=== PATIENT | female | born 1995 | race Caucasian/White ===

== ENCOUNTER 2019-01-14 12:53 | Emergency (ER) | payer BC, OTHER ==
--- NOTE | 2019-01-14 14:03 | ER ---
Nurse's Notes [facility] Name: Angle Hurley Age: 24 yrs Sex: Female : 1995 Arrival Date: 01/14/2019 Time: 12:58 Bed 23 Private MD: Diagnosis: Streptococcal pharyngitis Presentation: 01/14 13:05 Presenting complaint: Patient states: sore throat, dyspnea started 0300 today. sv Transition of care: patient was not received from another setting of care. Onset of symptoms was January 14, 2019. Risk Assessment: Do you want to hurt yourself or someone else? Patient reports no desire to harm self or others. Care prior to arrival: None. 13:05 Method Of Arrival: Ambulatory sv 13:05 Acuity: VAIBHAV 4 sv 14:39 Initial Sepsis Screen: Does the patient meet any 2 criteria? No. Patient's initial tr5 sepsis screen is negative. Does the patient have a suspected source of infection? No. Patient's initial sepsis screen is negative. Historical: - Allergies: 13:07 hydrocodone; sv - PSHx: 13:07 ; sv - Immunization history:: Adult Immunizations up to date. - Social history:: Smoking status: unknown. - Ebola Screening: : No symptoms or risks identified at this time. Screenin:13 Abuse screen: Denies threats or abuse. Nutritional screening: No deficits noted. tr5 Tuberculosis screening: No symptoms or risk factors identified. Fall Risk None identified. Assessment: 14:13 General: Appears in no apparent distress. Behavior is calm, cooperative. Pain: tr5 Complains of pain in Throat Pain does not radiate. Neuro: Level of Consciousness is awake, alert, obeys commands, Oriented to person, place, time. Cardiovascular: Heart tones present Capillary refill < 3 seconds. Respiratory: Airway is patent Respiratory effort is even, labored, Respiratory pattern is regular, symmetrical, Breath sounds are clear. GI: No signs and/or symptoms were reported involving the gastrointestinal system. : No signs and/or symptoms were reported regarding the genitourinary system. EENT: Throat is reddened has patchy exudate has enlarged tonsils bilaterally with gag reflex present. Derm: No signs and/or symptoms reported regarding the dermatologic system. Musculoskeletal: No signs and/or symptoms reported regarding the musculoskeletal system. Vital Signs: 13:07 BP 123 / 72; Pulse 113; Resp 20; Temp 98.6(O); Pulse Ox 100% ; Weight 86.18 kg; Height sv 5 ft. 2 in. (157.48 cm); 13:58 Temp 98.9(O); jp3 13:07 Body Mass Index 34.75 (86.18 kg, 157.48 cm) sv ED Course: 12:58 Patient arrived in ED. am2 13:00 Flu and/or RSV swab sent to lab. Strep swab sent to lab. jp3 13:07 Triage completed. sv 13:08 Arm band placed on. sv 13:56 Gabo Thapa NP is PHCP. pm1 13:56 Jaquan Madrigal MD is Attending Physician. pm1 13:59 Patient maintains SpO2 saturation greater than 95% on room air. jp3 14:13 Bed in low position. Call light in reach. Side rails up X 1. tr5 14:38 No provider procedures requiring assistance completed. Patient did not have IV access tr5 during this emergency room visit. Administered Medications: No medications were administered Outcome: 14:02 Discharge ordered by MD. pm1 14:38 Discharged to home ambulatory. tr5 14:38 Condition: stable 14:38 Discharge instructions given to patient, Instructed on discharge instructions, follow up and referral plans. medication usage, Demonstrated understanding of instructions, follow-up care, medications, Prescriptions given X 1. 14:39 Patient left the ED. Signatures: Parisa Balbuena RN RN Betty Roberts RN RN Gabo Thapa NP ROUTE MANAGER pm1 Shawanda Kline Jacob 3 Neil Lemos RN RN tr5 Corrections: (The following items were deleted from the chart) 13:05 13:05 Presenting complaint: sv sv
--- NOTE | 2019-01-14 14:04 | EDPHYS ---
Physician Documentation [facility] Name: Angle Hurley Age: 24 yrs Sex: Female : 1995 Arrival Date: 01/14/2019 Time: 12:58 Bed 23 Private MD: SONU Physician Jaquan Madrigal HPI: 01/14 14:00 This 24 yrs old Female presents to ER via Ambulatory with complaints of Sore pm1 Throat, Difficulty Swallowing. 14:00 The patient presents with sore throat. The patient describes throat pain as constant. pm1 Onset: The symptoms/episode began/occurred this morning, at 03:00. Severity of symptoms: in the emergency department the symptoms are actually worse. Modifying factors: The symptoms are alleviated by nothing, the symptoms are aggravated by fluids, foods, swallowing, Patient's oral intake status: good unaware of sick contact. Associated signs and symptoms: Pertinent negatives earache, fever, flu-like symptoms, nausea, rhinorrhea, shortness of breath, vomiting. It is unknown whether or not the patient has recently seen a physician. Historical: - Allergies: 13:07 hydrocodone; sv - PSHx: 13:07 ; sv - Immunization history:: Adult Immunizations up to date. - Social history:: Smoking status: unknown. - Ebola Screening: : No symptoms or risks identified at this time. ROS: 14:00 Constitutional: Negative for fever, chills, and weight loss, Eyes: Negative for injury, pm1 pain, redness, and discharge, Neck: Negative for injury, pain, and swelling. 14:00 Cardiovascular: Negative for chest pain, palpitations, and edema, Respiratory: Negative for shortness of breath, cough, wheezing, and pleuritic chest pain, Abdomen/GI: Negative for abdominal pain, nausea, vomiting, diarrhea, and constipation, Back: Negative for injury and pain, MS/Extremity: Negative for injury and deformity, Skin: Negative for injury, rash, and discoloration, Neuro: Negative for headache, weakness, numbness, tingling, and seizure. 14:00 ENT: Positive for sore throat, Negative for ear pain. Exam: 14:00 Constitutional: This is a well developed, well nourished patient who is awake, alert, pm1 and in no acute distress. Head/Face: Normocephalic, atraumatic. Eyes: Pupils equal round and reactive to light, extra-ocular motions intact. Lids and lashes normal. Conjunctiva and sclera are non-icteric and not injected. Cornea within normal limits. Periorbital areas with no swelling, redness, or edema. 14:00 Neck: Trachea midline, no thyromegaly or masses palpated, and no cervical lymphadenopathy. Supple, full range of motion without nuchal rigidity, or vertebral point tenderness. No Meningismus. Chest/axilla: Normal chest wall appearance and motion. Nontender with no deformity. No lesions are appreciated. Cardiovascular: Regular rate and rhythm with a normal S1 and S2. No gallops, murmurs, or rubs. Normal PMI, no JVD. No pulse deficits. Respiratory: Lungs have equal breath sounds bilaterally, clear to auscultation and percussion. No rales, rhonchi or wheezes noted. No increased work of breathing, no retractions or nasal flaring. Abdomen/GI: Soft, non-tender, with normal bowel sounds. No distension or tympany. No guarding or rebound. No evidence of tenderness throughout. Back: No spinal tenderness. No costovertebral tenderness. Full range of motion. Skin: Warm, dry with normal turgor. Normal color with no rashes, no lesions, and no evidence of cellulitis. MS/ Extremity: Pulses equal, no cyanosis. Neurovascular intact. Full, normal range of motion. 14:00 ENT: External ear(s): are unremarkable, Ear canal(s): are normal, TM's: are normal, Nose: is normal, Mouth: is normal, no acute changes, Posterior pharynx: Tonsils: bilaterally enlarged, with erythema, no exudate, no ulcerations, peritonsillar mass, is not appreciated, pooling of secretions, is not appreciated. 14:00 Neuro: Orientation: is normal, Motor: is normal, moves all fours. Vital Signs: 13:07 BP 123 / 72; Pulse 113; Resp 20; Temp 98.6(O); Pulse Ox 100% ; Weight 86.18 kg; Height sv 5 ft. 2 in. (157.48 cm); 13:58 Temp 98.9(O); jp3 13:07 Body Mass Index 34.75 (86.18 kg, 157.48 cm) sv MDM: 13:56 Patient medically screened. pm1 14:02 Data reviewed: vital signs. Data interpreted: Pulse oximetry: on room air is 100 %. pm1 Interpretation: normal. Counseling: I had a detailed discussion with the patient and/or guardian regarding: the historical points, exam findings, and any diagnostic results supporting the discharge/admit diagnosis, lab results, the need for outpatient follow up, to return to the emergency department if symptoms worsen or persist or if there are any questions or concerns that arise at home. 01/14 13:08 Order name: Strep; Complete Time: 13:56 sv 01/14 13:08 Order name: Flu; Complete Time: 13:56 sv Administered Medications: No medications were administered Disposition: 01/15 09:07 Co-signature as Attending Physician, Jaquan Madrigal MD I agree with the assessment and eduardo plan of care. Disposition: 01/14/19 14:02 Discharged to Home. Impression: Streptococcal pharyngitis. - Condition is Stable. - Discharge Instructions: Strep Throat. - Prescriptions for Amoxicillin 500 mg Oral Capsule - take 1 capsule by ORAL route every 8 hours for 10 days; 30 tablet. - Work release form, Medication Reconciliation Form, Thank You Letter, Antibiotic Education, Prescription Opioid Use form. - Follow up: Emergency Department; When: As needed; Reason: Worsening of condition. Follow up: Private Physician; When: 2 - 3 days; Reason: Recheck today's complaints, Continuance of care, Re-evaluation by your physician. - Problem is new. - Symptoms have improved. Signatures: Dispatcher [employer] Parisa Graham RN RN sv Anderson, Corey, MD MD cha Smirch, Shelby, RN RN Gabo Thapa, [employer] WORKFORCE PLANNER pm1 Neil Lemos RN RN tr5 Corrections: (The following items were deleted from the chart) 01/14 14:39 14:02 01/14/2019 14:02 Discharged to Home. Impression: Streptococcal pharyngitis. ss Condition is Stable. Forms are Medication Reconciliation Form, Thank You Letter, Antibiotic Education, Prescription Opioid Use. Follow up: Emergency Department; When: As needed; Reason: Worsening of condition. Follow up: Private Physician; When: 2 - 3 days; Reason: Recheck today's complaints, Continuance of care, Re-evaluation by your physician. Problem is new. Symptoms have improved. pm1
[2019-01-14 14:46] VITALS: BP 123/72; O2SAT 100
[2019-01-14 14:47] VITALS: TEMP 98.9
== END 2019-01-14 14:39 | disposition home or self-care (01) ==
LOC: ER 12:53
DX: J02.0 Streptococcal pharyngitis (principal); Z88.5 Allergy status to narcotic agent
CPT/HCPCS: 87081; 87804; 99284

== ENCOUNTER 2021-04-15 16:13 | Emergency (ER) | payer BC, OTHER, SELFPAY ==
--- NOTE | 2021-04-15 17:37 | EDPHYS ---
Physician Documentation [facility] Name: Angle Hurley Age: 26 yrs Sex: Female : 1995 Arrival Date: 04/15/2021 Time: 16:16 Bed Waiting Private MD: ED Physician Khalif Sanchez HPI: 04/15 17:32 This 26 yrs old Female presents to ER via Ambulatory with complaints of Diarrhea, Fever.cp 17:32 The patient presents to the emergency department with diarrhea, that is intermittent. cp 17:32 The patient or guardian reports sinus pressure/congestion intermittent for past 1 cp month. drainage increase over past 1 week. slight cough. 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 - Social history:: Smoking status: Patient denies any tobacco usage or history of. ROS: 17:33 Eyes: Negative for injury, pain, redness, and discharge. cp 17:33 Constitutional: Negative for body aches, chills, fever, poor PO intake. 17:33 ENT: Positive for rhinorrhea, sinus congestion, Negative for drainage from ear(s), ear pain, sore throat. 17:33 Respiratory: Positive for slight cough, Negative for shortness of breath, wheezing. 17:33 Abdomen/GI: Positive for diarrhea, Negative for abdominal pain, vomiting. 17:33 Neuro: Negative for altered mental status, weakness. 17:33 All other systems are negative. Exam: 17:33 Constitutional: The patient appears in no acute distress, alert, awake, non-toxic, well cp developed, well nourished. 17:33 Head/face: Sinus tenderness, that is mild, is located over the right frontal sinus, left frontal sinus, right maxillary sinus and left maxillary sinus. 17:33 Eyes: Periorbital structures: appear normal, Conjunctiva: normal, no exudate, no injection, Lids and lashes: appear normal, bilaterally. 17:33 ENT: External ear(s): are unremarkable, Ear canal(s): are normal, clear, TM's: dullness, bilaterally, Nose: is normal, Mouth: Lips: moist, Oral mucosa: pink and intact, moist, Posterior pharynx: Airway: no evidence of obstruction, patent. 17:33 Chest/axilla: Inspection: normal. 17:33 Cardiovascular: Rate: normal, Rhythm: regular. 17:33 Respiratory: the patient does not display signs of respiratory distress, Respirations: normal, no use of accessory muscles, no retractions, labored breathing, is not present, Breath sounds: are clear throughout, no decreased breath sounds, no stridor, no wheezing. 17:33 Abdomen/GI: Exam negative for discomfort, distension, guarding, Inspection: abdomen appears normal. Vital Signs: 17:20 BP 125 / 77; Pulse 85; Resp 16; Temp 98.3(O); Pulse Ox 100% ; Weight 86.18 kg; Height 5 vg1 ft. 2 in. (157.48 cm); Pain 0/10; 17:20 Body Mass Index 34.75 (86.18 kg, 157.48 cm) vg1 MDM: 17:36 Data reviewed: vital signs, nurses notes, and as a result, I will discharge patient. cp 17:36 Patient medically screened. cp 17:36 Counseling: I had a detailed discussion with the patient and/or guardian regarding: the cp historical points, exam findings, and any diagnostic results supporting the discharge/admit diagnosis, lab results, to return to the emergency department if symptoms worsen or persist or if there are any questions or concerns that arise at home. 04/15 17:31 Order name: COVID-19 (Coronavirus) Document "Date of Onset" if Symptomatic 1 04/15 17:31 Order name: Flu vg1 04/15 17:31 Order name: CORONAVIRUS EDMS 04/15 17:31 Order name: Influenza Screen (A EDMS Administered Medications: No medications were administered Disposition: 17:45 Chart complete. cp 18:03 Co-signature as Attending Physician, Khalif Sanchez MD I agree with the assessment and kdr plan of care. Disposition Summary: 04/15/21 17:36 Discharge Ordered Location: Home cp Problem: new cp Symptoms: are unchanged cp Condition: Stable cp Diagnosis - Acute sinusitis, unspecified cp - Diarrhea, unspecified cp Followup: cp - With: Private Physician - When: 2 - 3 days - Reason: Worsening of condition Discharge Instructions: - Discharge Summary Sheet cp - Food Choices to Help Relieve Diarrhea, Adult cp - Sinusitis, Adult cp - Diarrhea, Adult cp Forms: - Medication Reconciliation Form cp - Thank You Letter cp - Antibiotic Education cp - Prescription Opioid Use cp Prescriptions: - Flonase Allergy Relief 50 mcg/actuation Nasal spray,suspension - spray 1 spray by INTRANASAL route once daily; 1 Device; Refills: 0, Product cp Selection Permitted - Amoxicillin 875 mg Oral Tablet - take 1 tablet by ORAL route every 12 hours for 10 days; 20 tablet; Refills: 0, cp Product Selection Permitted Signatures: Dispatcher [employer] EDKhalif Cardoza MD MD kdr Page, Corey, PA PA cp Garcia, Victoria RN RN vg1
--- NOTE | 2021-04-15 17:37 | ER ---
Nurse's Notes [facility] Name: Angle Hurley Age: 26 yrs Sex: Female : 1995 Arrival Date: 04/15/2021 Time: 16:16 Bed Waiting Private MD: Diagnosis: Acute sinusitis, unspecified;Diarrhea, unspecified Presentation: 04/15 17:20 Chief complaint: Patient states: Diarrhea that comes and goes for about 2 weeks, 'but vg1 consistent for the past 4 days' states 'slight cough' and nasal discharge that comes and goes as well and states 'feels like head is congested and feels the drainage in the back of my throat.'. Coronavirus screen: Vaccine status: Patient reports being unvaccinated. Client denies travel out of the [place] in the last 14 days. Ebola Screen: Patient negative for fever greater than or equal to 101.5 degrees Fahrenheit, and additional compatible Ebola Virus Disease symptoms. Initial Sepsis Screen: Does the patient meet any 2 criteria? No. Patient's initial sepsis screen is negative. Does the patient have a suspected source of infection? No. Patient's initial sepsis screen is negative. Risk Assessment: Do you want to hurt yourself or someone else? Patient reports no desire to harm self or others. Onset of symptoms was April 01, 2021. 17:20 Method Of Arrival: Ambulatory vg1 17:20 Acuity: VAIBHAV 4 vg1 Triage Assessment: 17:22 General: Appears in no apparent distress. comfortable, Behavior is calm, cooperative. vg1 Pain: Denies pain. GI: Reports diarrhea, Patient currently denies nausea, vomiting. 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 - Social history:: Smoking status: Patient denies any tobacco usage or history of. Vital Signs: 17:20 BP 125 / 77; Pulse 85; Resp 16; Temp 98.3(O); Pulse Ox 100% ; Weight 86.18 kg; Height 5 vg1 ft. 2 in. (157.48 cm); Pain 0/10; 17:20 Body Mass Index 34.75 (86.18 kg, 157.48 cm) vg1 ED Course: 16:16 Patient arrived in ED. as 17:22 Triage completed. vg1 17:22 Arm band placed on. vg1 17:31 Jaquan Manuel PA is PHCP. cp 17:31 Khalif Sanchez MD is Attending Physician. cp 17:36 COVID swab sent to lab. Flu and/or RSV swab sent to lab. vg1 Administered Medications: No medications were administered Outcome: 17:36 Discharge ordered by . cp 17:46 Patient left the ED. vg1 Signatures: Sherrell Box as Jaquan Manuel PA PA cp Chuyita Owens, RN RN vg1 Corrections: (The following items were deleted from the chart) 17:26 17:20 Chief complaint: Patient states: Diarrhea that comes and goes for about 2 weeks, vg1 that's 'slight cough' and nasal discharge that comes and goes as well and states 'feels like head is congested and feels the drainage in the back of my throat.' vg1
[2021-04-15 17:55] VITALS: BP 125/77; TEMP 98.3; O2SAT 100
== END 2021-04-15 17:46 | disposition home or self-care (01) ==
LOC: ER 16:13
DX: J01.90 Acute sinusitis, unspecified (principal); R19.7 Diarrhea, unspecified
CPT/HCPCS: 87804 ×2; 99282; U0002

== ENCOUNTER 2021-09-15 21:40 | Emergency (ER) | payer BC ==
[2021-09-16 00:50] LABS: Absolute Lymphocytes (CBC) 0.8 K/uL (0.7-4.9); Hematocrit 28.4 % (36.0-45.0); Lymphocytes % 6.2 % (15.3-44.8); MPV 7.2 fL (7.6-11.3); RBC Red Blood Cell Count 3.94 M/uL (3.86-4.86)
[2021-09-16] MEDS ORDERED: MORPHINE 4 MG/ML SYR ONE (01:01)
[2021-09-16] MEDS ORDERED: ONDANSETRON 4 MG/2 ML VIAL ONE (01:01)
[2021-09-16] MEDS ORDERED: NA CHLORIDE 0.9% 1,000 ML ONE (01:01)
[2021-09-16 01:02] LABS: Albumin 3.6 g/dL (3.4-5.0); Bilirubin Total 0.2 mg/dL (0.2-1.0); Potassium 3.7 mmol/L (3.5-5.1); Protein, Total 7.5 g/dL (6.4-8.2)
[2021-09-16 01:28] LABS: Urine Blood Trace-lysed (Negative); Urine Glucose Negative (Negative); Urine Protein 1+ (Negative); Urine Specific Gravity >=1.030 (1.005-1.030); Urine pH 5.5 (5.0-7.0)
[2021-09-16 01:30] LABS: Blood Morphology Comment NOT SEEN (NOT SEEN); Platelet Estimate ADEQ
--- NOTE | 2021-09-16 05:09 | EDPHYS ---
Physician Documentation [facility] Name: Angle Hurley Age: 26 yrs Sex: Female : 1995 Arrival Date: 09/15/2021 Time: 21:47 Bed 30 Private MD: ED Physician Mich Maier HPI: 09/16 00:40 This 26 yrs old Female presents to ER via Ambulatory with complaints of mh7 Vomiting/Diarrhea, Abdominal Cramping, Decreased Appetite. 00:40 The patient presents to the emergency department with nausea, that is moderate, mh7 vomiting, that is intermittent, described as clear fluid, diarrhea, that is intermittent, abdominal pain, of the left lower quadrant, described as intermittent, vague,\E\ waxing and waning, and does not radiate. Onset: The symptoms/episode began/occurred 3 day(s) ago. Possible causes: unknown. The symptoms are aggravated by nothing. The symptoms are alleviated by nothing. Associated signs and symptoms: Pertinent negatives: anorexia, belching, constipation, dysuria, fever, flatulence, GI bleeding, hematuria, vaginal discharge. Severity of symptoms: At their worst the symptoms were moderate in the emergency department the symptoms have improved moderately. 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 - Social history:: Smoking status: Patient denies any tobacco usage or history of. ROS: 09/16 00:40 Constitutional: Negative for fever, chills, and weight loss, Eyes: Negative for injury, mh7 pain, redness, and discharge, ENT: Negative for injury, pain, and discharge, Neck: Negative for injury, pain, and swelling, Cardiovascular: Negative for chest pain, palpitations, and edema, Respiratory: Negative for shortness of breath, cough, wheezing, and pleuritic chest pain, Back: Negative for injury and pain, : Negative for injury, bleeding, discharge, and swelling, MS/Extremity: Negative for injury and deformity, Skin: Negative for injury, rash, and discoloration, Neuro: Negative for headache, weakness, numbness, tingling, and seizure, Psych: Negative for depression, anxiety, suicide ideation, homicidal ideation, and hallucinations, Allergy/Immunology: Negative for hives, rash, and allergies, Endocrine: Negative for neck swelling, polydipsia, polyuria, polyphagia, and marked weight changes, Hematologic/Lymphatic: Negative for swollen nodes, abnormal bleeding, and unusual bruising. Exam: 00:40 Head/Face: Normocephalic, atraumatic. Eyes: Pupils equal round and reactive to light, mh7 extra-ocular motions intact. Lids and lashes normal. Conjunctiva and sclera are non-icteric and not injected. Cornea within normal limits. Periorbital areas with no swelling, redness, or edema. Neck: Trachea midline, no thyromegaly or masses palpated, and no cervical lymphadenopathy. Supple, full range of motion without nuchal rigidity, or vertebral point tenderness. No Meningismus. Chest/axilla: Normal chest wall appearance and motion. Nontender with no deformity. No lesions are appreciated. Cardiovascular: Regular rate and rhythm with a normal S1 and S2. No gallops, murmurs, or rubs. Normal PMI, no JVD. No pulse deficits. Respiratory: Lungs have equal breath sounds bilaterally, clear to auscultation and percussion. No rales, rhonchi or wheezes noted. No increased work of breathing, no retractions or nasal flaring. 00:40 Back: No spinal tenderness. No costovertebral tenderness. Full range of motion. Skin: Warm, dry with normal turgor. Normal color with no rashes, no lesions, and no evidence of cellulitis. MS/ Extremity: Pulses equal, no cyanosis. Neurovascular intact. Full, normal range of motion. Neuro: Awake and alert, GCS 15, oriented to person, place, time, and situation. Cranial nerves II-XII grossly intact. Motor strength 5/5 in all extremities. Sensory grossly intact. Cerebellar exam normal. Normal gait. Psych: Awake, alert, with orientation to person, place and time. Behavior, mood, and affect are within normal limits. 00:40 Constitutional: The patient appears in no acute distress, alert, awake, uncomfortable. 00:40 Abdomen/GI: Inspection: obese Bowel sounds: normal, in all quadrants, Palpation: moderate abdominal tenderness, in the left lower quadrant, mass, is not appreciated, rebound tenderness, is not appreciated, voluntary guarding, is not appreciated, involuntary guarding, is not appreciated, no appreciated organomegaly, Rectal exam: the exam is deferred, because of patient request, Indicators: McBurney's point is not tender, Abbott's sign is negative, Rovsing's sign is negative, Obturator sign is negative, Psoas sign is negative, Liver: no appreciated palpable abnormalities, Hernia: not appreciated. Vital Signs: 09/15 23:34 BP 138 / 90; Pulse 75; Resp 17; Temp 98.7(TE); Pulse Ox 100% on R/A; Weight 83.91 kg ll3 (R); Height 5 ft. 2 in. (157.48 cm) (R); 09/16 01:46 BP 114 / 75; Pulse 92; Resp 18; Pulse Ox 100% on R/A; ll3 02:57 BP 115 / 75; Pulse 67; Resp 15; Pulse Ox 100% on R/A; ll3 04:30 BP 123 / 76; Pulse 79; Resp 15; Pulse Ox 100% on R/A; ll3 09/15 23:34 Body Mass Index 33.84 (83.91 kg, 157.48 cm) ll3 MDM: 05:07 Differential diagnosis: Nonspecific abd pain, gastritis, diverticulitis, viral mh7 gastroenteritis, gastroenteritis. Data reviewed: vital signs, nurses notes, lab test result(s), CBC, electrolytes, urinalysis, radiologic studies, CT scan, ultrasound. Data interpreted: Pulse oximetry: on room air is 100 %. Interpretation: normal. Counseling: I had a detailed discussion with the patient and/or guardian regarding: the historical points, exam findings, and any diagnostic results supporting the discharge/admit diagnosis, lab results, radiology results, the need for outpatient follow up, an OB/Gyne specialist, to return to the emergency department if symptoms worsen or persist or if there are any questions or concerns that arise at home. Response to treatment: the patient's symptoms have markedly improved after treatment. 05:09 Patient medically screened. [facility] 09/15 23:52 Order name: CBC with Diff; Complete Time: 02:20 lp1 09/15 23:52 Order name: CMP; Complete Time: 02:20 lp1 09/15 23:52 Order name: Lipase; Complete Time: 02:20 lp1 09/16 00:54 Order name: Manual Differential; Complete Time: 02:20 EDMS 09/16 01:28 Order name: Urine Dipstick-Ancillary; Complete Time: 02:20 EDMS 09/15 23:52 Order name: IV Saline Lock; Complete Time: 00:41 lp1 09/15 23:52 Order name: Labs collected and sent; Complete Time: 00:41 lp1 09/16 00:45 Order name: Urine Dipstick-Ancillary (obtain specimen); Complete Time: 01:36 [facility] 09/16 00:46 Order name: CT Abd/Pelvis - Without Contrast [facility] 09/16 03:28 Order name: US Transvaginal Study (Probe) [facility] 09/16 00:45 Order name: Urine Test (obtain specimen); Complete Time: 01:36 [facility] Administered Medications: 01:20 Drug: Zofran (Ondansetron) 4 mg Route: IVP; Site: right antecubital; ll3 01:48 Follow up: Response: No adverse reaction ll3 01:23 Drug: NS 0.9% 1000 ml Route: IV; Rate: 1000 ml; Site: right antecubital; ll3 02:26 Follow up: Response: No adverse reaction; IV Status: Completed infusion; IV Intake: ll3 1000ml 01:23 Drug: morphine 4 mg Route: IVP; Infused Over: 4 mins; Site: right antecubital; ll3 01:48 Follow up: Response: No adverse reaction ll3 Disposition Summary: 09/16/21 05:09 Discharge Ordered Location: Home [facility] Problem: new [facility] Symptoms: have improved [facility] Condition: Stable [facility] Diagnosis - Lower abdominal pain, unspecified 7 - Gastroenteritis 7 - Other ovarian cyst, left side [facility] Followup: [facility] - With: Private Physician - When: 1 - 2 days - Reason: Worsening of condition, Recheck today's complaints, Continuance of care, Re-evaluation by your physician Followup: [facility] - With: Ese Goldman MD - When: 1 - 2 days - Reason: Recheck today's complaints, Continuance of care, Re-evaluation by your physician Discharge Instructions: - Discharge Summary Sheet 7 - Viral Gastroenteritis, Adult, [id number] 7 - Abdominal Pain, Adult, [id number]-[id number] 7 - Ovarian Cyst, Mjef-qv-Ncho [facility] Forms: - Medication Reconciliation Form [facility] - Thank You Letter [facility] - Antibiotic Education [facility] - Prescription Opioid Use [facility] Prescriptions: - ketorolac 10 mg Oral tablet - take 1 tablet by ORAL route every 6-8 hours As needed not to exceed 40 mg in [facility] 24hrs; 15 tablet; Refills: 0, Product Selection Permitted - ondansetron 4 mg Oral tablet,disintegrating - place 1 tablet by TRANSLINGUAL route every 8 hours As needed; 10 tablet; [facility] Refills: 0, Product Selection Permitted - dicyclomine 20 mg Oral Tablet - take 1 tablet by ORAL route 4 times per day As needed; 20 tablet; Refills: 0, [facility] Product Selection Permitted Signatures: Dispatcher [employer] EDTish Larsen RN RN lp1 Mich Maier MD MD 7 Reed Hernandez RN RN ll3
--- NOTE | 2021-09-16 05:09 | ER ---
Nurse's Notes [facility] Name: Angle Hurley Age: 26 yrs Sex: Female : 1995 Arrival Date: 09/15/2021 Time: 21:47 Bed 30 Private MD: Diagnosis: Lower abdominal pain, unspecified;Gastroenteritis;Other ovarian cyst, left side Presentation: 09/15 23:34 Chief complaint: Patient states: C/O diarrhea for 3 days, states started vomiting ll3 tonight and c/o left sided cramping. Coronavirus screen: Vaccine status: Patient reports being unvaccinated. diarrhea, nausea, vomiting. Ebola Screen: No symptoms or risks identified at this time. Initial Sepsis Screen: Does the patient meet any 2 criteria? No. Patient's initial sepsis screen is negative. Does the patient have a suspected source of infection? No. Patient's initial sepsis screen is negative. Risk Assessment: Do you want to hurt yourself or someone else? Patient reports no desire to harm self or others. Onset of symptoms was September 12, 2021. Activity prior to arrival: vomiting. 23:34 Method Of Arrival: Ambulatory ll3 23:34 Acuity: VAIBHAV 3 ll3 Triage Assessment: 23:37 General: Appears uncomfortable, ill, Behavior is calm, cooperative. Pain: Complains of ll3 pain in anterior aspect of right lateral abdomen Pain currently is 7 out of 10 on a pain scale. Pain began 4 hours ago. Is continuous. Neuro: No deficits noted. Respiratory: No deficits noted. GI: Reports cramping, diarrhea, nausea, vomiting. Derm: Skin is pink, warm \T\ dry. 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 - Social history:: Smoking status: Patient denies any tobacco usage or history of. Screenin:39 Abuse screen: Denies threats or abuse. Nutritional screening: No deficits noted. ll3 Tuberculosis screening: No symptoms or risk factors identified. 09/16 02:58 Fall Risk No fall in past 12 months (0 pts). No secondary diagnosis (0 pts). IV access ll3 (20 points). Ambulatory Aid- None/Bed Rest/Nurse Assist (0 pts). Gait- Normal/Bed Rest/Wheelchair (0 pts) Mental Status- Oriented to own ability (0 pts). Total Flores Fall Scale indicates No Risk (0-24 pts). Assessment: 09/15 23:39 General: See triage assessment. GI: Abdomen is round non-distended, Stools are reported ll3 to be diarrhea. Reports cramping, diarrhea, nausea, vomiting. 09/16 00:45 Reassessment: No changes from previously documented assessment. Patient and/or family ll3 updated on plan of care and expected duration. Pain level reassessed. Patient is alert, oriented x 3, equal unlabored respirations, skin warm/dry/pink. 01:47 Reassessment: No changes from previously documented assessment. Patient and/or family ll3 updated on plan of care and expected duration. Pain level reassessed. Patient is alert, oriented x 3, equal unlabored respirations, skin warm/dry/pink. 02:57 Reassessment: No changes from previously documented assessment. Patient and/or family ll3 updated on plan of care and expected duration. Pain level reassessed. Patient is alert, oriented x 3, equal unlabored respirations, skin warm/dry/pink. 04:00 Reassessment: No changes from previously documented assessment. Patient and/or family ll3 updated on plan of care and expected duration. Pain level reassessed. Patient is alert, oriented x 3, equal unlabored respirations, skin warm/dry/pink. 04:30 Reassessment: No changes from previously documented assessment. Patient and/or family ll3 updated on plan of care and expected duration. Pain level reassessed. Patient is alert, oriented x 3, equal unlabored respirations, skin warm/dry/pink. Vital Signs: 09/15 23:34 BP 138 / 90; Pulse 75; Resp 17; Temp 98.7(TE); Pulse Ox 100% on R/A; Weight 83.91 kg ll3 (R); Height 5 ft. 2 in. (157.48 cm) (R); 09/16 01:46 BP 114 / 75; Pulse 92; Resp 18; Pulse Ox 100% on R/A; ll3 02:57 BP 115 / 75; Pulse 67; Resp 15; Pulse Ox 100% on R/A; ll3 04:30 BP 123 / 76; Pulse 79; Resp 15; Pulse Ox 100% on R/A; ll3 09/15 23:34 Body Mass Index 33.84 (83.91 kg, 157.48 cm) ll3 ED Course: 09/15 21:47 Patient arrived in ED. ja2 23:26 Reed Hernandez, RN is Primary Nurse. ll3 23:37 Triage completed. ll3 23:37 Arm band placed on Patient placed in an exam room, on pulse oximetry. ll3 23:39 Patient has correct armband on for positive identification. Placed in gown. Bed in low ll3 position. Call light in reach. Side rails up X 1. Adult w/ patient. 09/16 00:05 Mich Maier MD is Attending Physician. 7 00:30 No provider procedures requiring assistance completed. Inserted saline lock: 18 gauge ll3 in right antecubital area, using aseptic technique. Blood collected. 02:12 CT Abd/Pelvis - Without Contrast In Process Unspecified. EDMS 04:12 US Transvaginal Study (Probe) In Process Unspecified. EDMS 05:08 Ese Goldman MD is Referral Physician. 7 05:19 IV discontinued, intact, bleeding controlled, No redness/swelling at site. Pressure ll3 dressing applied. Administered Medications: 01:20 Drug: Zofran (Ondansetron) 4 mg Route: IVP; Site: right antecubital; ll3 01:48 Follow up: Response: No adverse reaction ll3 01:23 Drug: NS 0.9% 1000 ml Route: IV; Rate: 1000 ml; Site: right antecubital; ll3 02:26 Follow up: Response: No adverse reaction; IV Status: Completed infusion; IV Intake: ll3 1000ml 01:23 Drug: morphine 4 mg Route: IVP; Infused Over: 4 mins; Site: right antecubital; ll3 01:48 Follow up: Response: No adverse reaction ll3 Medication: 09/15 23:39 VIS not applicable for this client. ll3 Intake: 09/16 02:26 IV: 1000ml; Total: 1000ml. ll3 Outcome: 05:09 Discharge ordered by . 7 05:19 Discharged to home ambulatory, with family. ll3 05:19 Condition: stable 05:19 Discharge instructions given to patient, family, Instructed on discharge instructions, follow up and referral plans. medication usage, Demonstrated understanding of instructions, follow-up care, medications, Prescriptions given X 3. 05:19 Patient left the ED. ll3 Signatures: Dispatcher [employer] Mich Stacy MD MD mh7 Mis Thompson Lynsea, RN RN ll3
[2021-09-16 05:28] VITALS: TEMP 98.7; O2SAT 100
[2021-09-16 05:32] VITALS: BP 123/76
--- NOTE | 2021-09-16 18:50 | RAD REPORT ---
EXAM DESCRIPTION: US Pelvis Transvaginal and US Duplex Arterial/Venous of the Pelvis, Complete CLINICAL HISTORY: The patient is 26 years old and is Female; left ovarian mass LMP August 30, 2021. TECHNIQUE: Real-time transvaginal pelvic ultrasound with image documentation. Transvaginal imaging was used for better evaluation of the endometrium and adnexa. Real-time duplex ultrasound scan of the arterial and venous flow of the pelvis with color Doppler flow and spectral waveform analysis. COMPARISON: CT abdomen pelvis September 16, 2021. FINDINGS: Uterus/cervix: Uterus is 8.5 x 5.0 x 5.8 cm in size. Endometrium is 5.8 mm in thickness. Uterus is 4.5 x 4.1 x 3.7 cm in size. No myometrial mass. Right ovary: Right ovary 3.9 x 2.6 x 2.8 cm. No torsion. Left ovary: Left ovary 4.5 x 4.1 x 3.8 cm. Homogeneous hypoechoic left ovarian lesion with uniform internal echoes, 3.2 cm in greatest d imension. Left ovarian simple cyst, 3.0 cm. No torsion. Free fluid: No free fluid. Bladder: Empty bladder which cannot be evaluated with this probe. IMPRESSION: 1. No ovarian torsion. 2. 3.2 cm left ovarian lesion consistent with endometrioma/hemorrhagic cyst. Recommend pelvic US fo llow-up in 6-12 weeks; if unchanged, continue follow-up with US OR MRI with IV contrast - if follow-u p studies do not confirm endometrioma or dermoid, consider surgical evaluation. References: Radiology 2019 Feb;293(2):359-371, Radiology 2010 Dec;256(3):943-54 3. Left ovarian simple cyst 3.0 cm. Electronically signed by: Parisa Mccord MD 09/16/2021 4:31 AM CDT Due to temporary technical issues with the PACS/Fluency reporting system, reports are being signed by the in house radiologists without review as a courtesy to insure prompt reporting. The interpreting radiologist is fully responsible for the content of the report.
--- NOTE | 2021-09-16 18:51 | RAD REPORT ---
EXAM DESCRIPTION: CT Abdomen and Pelvis Without Intravenous Contrast CLINICAL HISTORY: The patient is 26 years old and is Female; LLQ abdominal pain TECHNIQUE: Axial computed tomography images of the abdomen and pelvis without intravenous contrast. Sagittal and coronal reformatted images were created and reviewed. This CT exam was performed usi ng one or more of the following dose reduction techniques: automated exposure control, adjustment o f the mA and/or kV according to patient size, and/or use of iterative reconstruction technique. COMPARISON: No relevant prior studies available. FINDINGS: LUNG BASES: Unremarkable. No mass. No consolidation. ABDOMEN: LIVER: Homogeneous without focal mass. GALLBLADDER AND BILE DUCTS: The gallbladder slightly contracted. PANCREAS: Unremarkable. No ductal dilation. SPLEEN: Unremarkable. ADRENALS: Unremarkable. No mass. KIDNEYS AND URETERS: No obstructing stones. No hydronephrosis. No perinephric fluid. STOMACH AND BOWEL: The stomach is distended with food contents and air. The small bowel is normal in caliber. Stool is present throughout colon. There is no mucosal thickening or evidence of bowel o bstruction. PELVIS: APPENDIX: The appendix is normal in caliber without surrounding inflammation. BLADDER: Unremarkable. No stones. REPRODUCTIVE: A heterogeneous dense 3.7 cm left ovarian mass is present. The uterus and right ova ry are normal. ABDOMEN and PELVIS: INTRAPERITONEAL SPACE: Unremarkable. No free air. No significant fluid collection. BONES/JOINTS: No acute fracture. SOFT TISSUES: The soft tissues are normal. VASCULATURE: Unremarkable. No abdominal aortic aneurysm. LYMPH NODES: Unremarkable. No enlarged lymph nodes. IMPRESSION: Heterogeneous left ovarian mass. Recommend prompt follow-up pelvic ultrasound. Electronically signed by: Martha Maldonado MD 09/16/2021 2:32 AM CDT Due to temporary technical issues with the PACS/Fluency reporting system, reports are being signed by the in house radiologists without review as a courtesy to insure prompt reporting. The interpreting radiologist is fully responsible for the content of the report.
== END 2021-09-16 05:19 | disposition home or self-care (01) ==
LOC: ER 21:40
DX: K52.9 Noninfective gastroenteritis and colitis, unspecified (principal); N83.292 Other ovarian cyst, left side; R10.30 Lower abdominal pain, unspecified; Z88.5 Allergy status to narcotic agent
CPT/HCPCS: 96361; 85025; 36415; 81003; 83690; 80053; 74176; 76830; 96375; 96374; 99284; J7030; J2405

== ENCOUNTER 2024-07-22 11:40 | Emergency (ER) | payer BC ==
--- OUTSIDE RECORDS SUMMARY | 2024-07-22 11:42 | XMS REPORT | Continuity of Care Document ---
Author Name Unknown Address [address] [place] [address] [place] [address] [address] [place] [address] Care Team Providers Care Trousseau Consultant Name Role Phone [email or web address] Attending Clinician Unavaila ble [email or web address] Admitting Clinician Unavaila ble Encounters Start Date/Time End Date/Time Encounter Type Admission Type Attending Clinicians Care Facility Care Department Encounter ID Source 2023-02-11 00:00:00 2023-02-11 00:00:00 Outpatient [email or web address] [facility] [id number] [facility]
[2024-07-22] MEDS ORDERED: FENTANYL CITR 100 MCG/2 ML ONE (12:12)
[2024-07-22] MEDS ORDERED: ONDANSETRON 4 MG/2 ML VIAL ONE (12:12)
[2024-07-22] MEDS ORDERED: NA CHLORIDE 0.9% 1,000 ML ONE (12:13)
[2024-07-22 12:30] LABS: Absolute Basophils 0.1 K/uL (0-0.5); Absolute Eosinophils 0.3 K/uL (0-0.5); Absolute Lymphocytes (CBC) 3.2 K/uL (0.7-4.9); Absolute Monocytes 0.5 K/uL (0.1-1.3); Absolute Neutrophil 7.5 K/uL (1.8-8.0); Basophils % 0.5 % (0-1.3); Eosinophils % 2.5 % (0-4.4); Hematocrit 31.8 % (36.0-45.0); Hemoglobin 11.1 g/dL (12.0-15.0); Lymphocytes % 27.9 % (15.3-44.8); MCH 30.6 pg (27.0-35.0); MCHC 34.7 g/dL (32.0-36.0); MPV 7.1 fL (7.6-11.3); Monocytes % 4.7 % (3.3-12.3); Neutrophils % 64.4 % (41.7-73.7); Platelets 302 thou/uL (152-406); RBC Red Blood Cell Count 3.62 M/uL (3.86-4.86); Red Cell Distribution Width 13.5 % (12.1-15.2)
[2024-07-22 12:41] LABS: Albumin 3.3 g/dL (3.4-5.0); Albumin/Globulin Ratio 0.9 (1.1-1.8); Anion Gap 10.3 mEq/L (5.0-15.0); Bilirubin Total 0.4 mg/dL (0.2-1.0); Globulin 3.7 g/dL (2.3-3.5); Potassium 3.3 mEq/L (3.5-5.1)
[2024-07-22] MEDS ORDERED: HYDROMORPHONE HCL 0.5 MG/0.5 ML INJ ONE ×2 (13:08→15:30)
[2024-07-22] MEDS ORDERED: PROMETHAZINE INJ 25 MG/ML AMP ONE ×2 (13:08→15:30)
--- NOTE | 2024-07-22 13:49 | RAD REPORT ---
EXAMINATION: CT Abdomen Pelvis W Contrast CLINICAL INDICATION: Female, 29 years old. Abd pain;Flank pain TECHNIQUE: CT abdomen and pelvis was performed, after the administration of IV contrast, as per [facility] protocol. Axial, sagittal and coronal reconstructions were obtained. One or more of the following dose reduction techniques were used: Automated exposure control, adjustment of the mA and k V according to patient size, and iterative reconstruction. Unless otherwise specified, incidental findings do not require dedicated imaging follow-up. COMPARISON: No prior exam. FINDINGS: LOWER CHEST: The visualized lung bases are clear. LIVER: Normal in size and contour. No focal lesion. BILIARY SYSTEM: No suspicious abnormalities. SPLEEN: Normal size. No focal lesion. PANCREAS: No mass, ductal dilation, or julisa-pancreatic fluid. ADRENALS: Normal; no mass. KIDNEYS: Normal size and contour. No hydronephrosis. URINARY BLADDER: Unremarkable. GASTROINTESTINAL TRACT: No evidence of free air, significant intra-abdominal free fluid, bowel obstru ction or abscess. APPENDIX: Normal appendix. LYMPH NODES: No lymphadenopathy. MUSCULOSKELETAL: No acute or suspicious osseous abnormality. ADDITIONAL FINDINGS: Lobulated lower abdominal mixed cystic and solid mass appears to be arising from the left adnexal region, but extends superiorly and across the midline and above the level of the umbilicus, measuring 8.4 x 5.0 x 11.5 cm in greatest transverse, AP, and CC dimensions. IMPRESSION: Large lobulated lower abdominal 8.4 x 5.0 x 11.5 cm mixed cystic and solid mass appears to be arising from the left adnexal region, was be concerning for gynecologic malignancy until proven otherwise. This can be further evaluated by pelvic MRI with and without contrast. No other acute or concerning abnormalities seen in the abdomen or pelvis.
--- NOTE | 2024-07-22 14:16 | ER ---
Nurse's Notes [facility] Name: Angle Hurley Age: 29 yrs Sex: Female : 1995 Arrival Date: 07/22/2024 Time: 11:40 Bed 18 Private MD: Diagnosis: Adnexal mass, left - 8x5x11 cm, concerning for gynecologic malignancy;Intractable abdominal pain Presentation: 07/22 11:50 Chief complaint: Spouse and/or significant other states: left lower back pain and iw vomiting X 1 hour, hx of ovarian cyst, pain is only in lower back and down her leg, no injury , thought it was her menstrual cycle, it has been heavy. Coronavirus screen: At this time, the client does not indicate any symptoms associated with coronavirus-19. Ebola Screen: No symptoms or risks identified at this time. Initial Sepsis Screen: Does the patient meet any 2 criteria? No. Patient's initial sepsis screen is negative. Does the patient have a suspected source of infection? No. Patient's initial sepsis screen is negative. Risk Assessment: Do you want to hurt yourself or someone else? Patient reports no desire to harm self or others. Onset of symptoms was July 22, 2024. 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 - Infectious Disease History:: Denies. - Social history:: Smoking status: Patient denies any tobacco usage or history of. Screenin:27 [facility] ED Fall Risk Assessment (Adult) History of falling in the last 3 months, kc6 including since admission No falls in past 3 months (0 pts) Confusion or Disorientation No (0 pts) Intoxicated or Sedated No (0 pts) Impaired Gait No (0 pts) Mobility Assist Device Used No (0 pt) Altered Elimination No (0 pt) Score/Fall Risk Level 0 - 2 = Low Risk Oriented to surroundings, Maintained a safe environment, Educated pt \T\ family on fall prevention, incl call for assistance when getting out of bed. Abuse screen: Denies threats or abuse. Denies injuries from another. Nutritional screening: No deficits noted. Tuberculosis screening: No symptoms or risk factors identified. Assessment: 12:27 General: Appears in no apparent distress. uncomfortable, well groomed, well developed, kc6 Behavior is appropriate for age, crying. Pain: Complains of pain in posterior aspect of left lateral abdomen, anterior aspect of left lateral abdomen and left lower quadrant and left low back Pain radiates to left leg Quality of pain is described as sharp, Pain began suddenly, Is continuous, Noted to be crying, grimacing, guarding, quiet/stoic, resistant to movement. Neuro: Level of Consciousness is awake, alert, obeys commands, Oriented to person, place, time, situation, Appropriate for age. Cardiovascular: Capillary refill < 3 seconds. Respiratory: Airway is patent Trachea midline Respiratory effort is even, unlabored, Respiratory pattern is regular, symmetrical. GI: Abdomen is round non-distended, Bowel sounds present X 4 quads. Abd is soft X 4 quads Reports lower abdominal pain, diarrhea, nausea, vomiting. : Reports vaginal bleeding that is bright red, with clots, heavy flow Denies burning with urination, pain with urination urinary frequency, urgency. EENT: No signs and/or symptoms were reported regarding the EENT system. Derm: No signs and/or symptoms reported regarding the dermatologic system. Skin is intact, is healthy with good turgor, Skin is pale. Musculoskeletal: No signs and/or symptoms reported regarding the musculoskeletal system. Circulation, motion, and sensation intact. Range of motion: intact in all extremities. 13:13 Reassessment: Patient appears in no apparent distress at this time. No changes from kc6 previously documented assessment. Patient and/or family updated on plan of care and expected duration. Pain level reassessed. Patient is alert, oriented x 3, equal unlabored respirations, skin warm/dry/pink. Patient states symptoms have improved. 14:08 Reassessment: Patient appears in no apparent distress at this time. No changes from kc6 previously documented assessment. Patient and/or family updated on plan of care and expected duration. Pain level reassessed. Patient is alert, oriented x 3, equal unlabored respirations, skin warm/dry/pink. 14:19 : Urine is brooklynn blood. kc6 Vital Signs: 11:50 BP 115 / 59; Pulse 71; Resp 16; Pulse Ox 100% on R/A; Weight 90.72 kg; Height 5 ft. 2 iw in. ; Pain 10/10; 13:13 BP 113 / 70; Pulse 78; Resp 18 S; Pulse Ox 97% on R/A; kc6 14:19 BP 112 / 67; Pulse 59; Resp 16 S; Pulse Ox 100% on R/A; Pain 6/10; kc6 15:35 BP 107 / 58; Pulse 60; Resp 16 S; Pulse Ox 100% on R/A; Pain 8/10; kc6 11:50 Body Mass Index 36.58 (90.72 kg, 157.48 cm) iw 11:50 Pain Scale: Adult iw 14:19 Pain Scale: Adult kc6 15:35 Pain Scale: Adult kc6 ED Course: 11:44 Patient arrived in ED. al6 11:45 Lily Bryant PA-C is PHCP. sb4 11:45 Cally Novak MD is Attending Physician. sb4 11:50 Arm band placed on. kc6 11:53 Triage completed. iw 11:55 Hailey Medrano, RN is Primary Nurse. kc6 12:15 Inserted saline lock: 22 gauge in right antecubital area, using aseptic technique. nh2 Blood collected. Flushed with 10 mL NS. 12:21 CBC with Diff Sent. nh2 12:21 CMP Sent. nh2 12:21 Lipase Sent. nh2 12:27 Patient maintains SpO2 saturation greater than 95% on room air. kc6 12:27 Patient has correct armband on for positive identification. Placed in gown. Bed in low kc6 position. Call light in reach. Side rails up X 1. Adult w/ patient. Pulse ox on. NIBP on. Door closed. Noise minimized. Lights dimmed. Warm blanket given. Pillow given. Verbal reassurance given. 13:25 CT Abd/Pelvis - IV Contrast Only In Process Unspecified. EDMS 13:57 Assisted to bathroom. 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 14:19 Urine collected: clean catch specimen, brooklynn blood. kc6 14:19 Provided Education on: need for transfer. kc6 14:23 initiated a transfer with Angle from the [facility] transfer center. eb 14:32 connected the SLAB MILLER OPERATOR attraction attendant for [facility] with Lily for patient eb transfer consultation. 14:35 administrative approval given by Angle Omalley Rn/ patient has been accepted to [facility] ED/ Dr. Geovany العلي has accepted the patient in transfer / report to be called to [phone]. 15:36 No provider procedures requiring assistance completed. Patient transferred, IV remains kc6 in place. Administered Medications: 12:26 Drug: NS 0.9% IV 1000 ml IV at 1 bolus Per protocol; to be given as a bolus over 60 kc6 minutes Route: IV; Rate: 1 bolus; Site: right antecubital; 13:54 Follow up: Response: No adverse reaction; IV Status: Completed infusion; IV Intake: kc6 1000ml 12:27 Drug: Ondansetron IVP 4 mg IVP once; over 2 minutes Route: IVP; Site: right antecubital;kc6 13:05 Follow up: Response: No adverse reaction; Nausea is decreased; Vomiting decreased kc6 12:27 Drug: fentaNYL (PF) IVP 50 mcg IVP once Route: IVP; Site: right antecubital; kc6 13:05 Follow up: Response: No adverse reaction; Pain is unchanged, physician notified; RASS: kc6 Alert and Calm (0) 13:13 Drug: HYDROmorphone IVP 0.5 mg IVP once Route: IVP; Site: right antecubital; kc6 13:56 Follow up: Response: No adverse reaction; Pain is decreased; RASS: Alert and Calm (0) kc6 13:13 Drug: Promethazine IVP 12.5 mg IVP once Route: IVP; Site: right antecubital; kc6 13:56 Follow up: Response: No adverse reaction; Nausea is decreased; Vomiting decreased kc6 15:35 Drug: HYDROmorphone IVP 0.5 mg IVP once Route: IVP; Site: right antecubital; kc6 15:43 Follow up: Response: No adverse reaction; Pain is decreased; RASS: Alert and Calm (0) kc6 15:35 Drug: Promethazine IVP 12.5 mg IVP once Route: IVP; Site: right antecubital; kc6 15:43 Follow up: Response: No adverse reaction; Nausea is decreased kc6 Medication: 15:36 VIS not applicable for this client. kc6 Intake: 13:54 IV: 1000ml; Total: 1000ml. kc6 Outcome: 14:15 ER care complete, transfer ordered by MD. heard 15:36 Transferred by ground EMS [facility]. The [facility] Transfer form kc6 completed. 15:36 Condition: good 15:36 Instructed on the need for transfer, 15:44 Patient left the ED. kc6 Signatures: Dispatcher [employer] EDAllison Warren RN Regi García Kaitlyn, RN RN kc6 Lily Bryant, PA-C PA-C kai4 William Dillard, Nga Lynn6 Corrections: (The following items were deleted from the chart) 14:35 12:27 Pain: Complains of pain in abdomen and left low back kc6 kc6 14:35 12:27 : No signs and/or symptoms were reported regarding the genitourinary system. [id number]
--- NOTE | 2024-07-22 14:16 | EDPHYS ---
Physician Documentation [facility] Name: Angle Hurley Age: 29 yrs Sex: Female : 1995 Arrival Date: 07/22/2024 Time: 11:40 Bed 18 Private MD: ED Physician Cally Novak HPI: 07/22 12:10 This 29 yrs old Female presents to ER via Ambulatory with complaints of Low back pain, sb4 vomiting. 12:11 Patient reports left low back pain that began this morning and suddenly got severe. sb4 States that she is on her menstrual cycle, and does have history of very painful periods. She also has a history of ovarian cysts. Denies any history of kidney stones. Denies any current urinary symptomsno dysuria, hematuria, frequency. Denies any prior episodes of pain like this. 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 - Infectious Disease History:: Denies. - Social history:: Smoking status: Patient denies any tobacco usage or history of. ROS: 12:11 Constitutional: Negative for fever, chills, and weight loss, sb4 12:11 Back: Positive for pain at rest, radiated pain, of the left low back, 12:11 All other systems are negative, Exam: 12:11 Head/Face: Normocephalic, atraumatic. Eyes: Extra-ocular motions intact. Periorbital sb4 areas with no swelling, redness, or edema. ENT: Mucous membranes moist. Cardiovascular: Regular rate and rhythm with a normal S1 and S2. Respiratory: No increased work of breathing, no retractions or nasal flaring. Abdomen/GI: Soft, non-tender, no distension. Skin: Warm, dry with normal turgor. Normal color with no rashes, no lesions, and no evidence of cellulitis. 12:11 Constitutional: The patient appears alert, awake, in obvious pain, uncomfortable, vomiting 12:11 Back: pain, that is moderate, of the left low back, CVA tenderness, is absent, Vital Signs: 11:50 BP 115 / 59; Pulse 71; Resp 16; Pulse Ox 100% on R/A; Weight 90.72 kg; Height 5 ft. 2 iw in. ; Pain 10/10; 13:13 BP 113 / 70; Pulse 78; Resp 18 S; Pulse Ox 97% on R/A; kc6 14:19 BP 112 / 67; Pulse 59; Resp 16 S; Pulse Ox 100% on R/A; Pain 6/10; kc6 15:35 BP 107 / 58; Pulse 60; Resp 16 S; Pulse Ox 100% on R/A; Pain 8/10; kc6 11:50 Body Mass Index 36.58 (90.72 kg, 157.48 cm) iw 11:50 Pain Scale: Adult iw 14:19 Pain Scale: Adult kc6 15:35 Pain Scale: Adult kc6 MDM: 11:51 Medical Screening Exam initiated sb4 14:32 Data reviewed: vital signs, nurses notes, lab test result(s), radiologic studies, I sb4 have discussed the patient's presentation/case with the attending Emergency Department Physician;. Counseling: I had a detailed discussion with the patient and/or guardian regarding the historical points, exam findings, and any diagnostic results supporting the discharge/admit diagnosis, lab results, radiology results, the need to transfer to another facility. 14:34 ED course: CT is worrisome for gynecologic malignancy as it delineated a large sb4 lobulated lower abdominal mass from the left adnexal region - 8 x 11 x 5 cm. She was seen here in 2021 and diagnosed with a 3.2 cm left ovarian mass that was possibly an endometrioma or hemorrhagic cyst. She states that she did follow-up with PHARMACIST had another ultrasound, and was told that it was a cyst and they recommended surgical removal. Patient declined at the time because she was not having any pain with it. States that she has not had it evaluated since then. I discussed all of these findings with patient, with attending physician, and with patient's , and recommended transfer for further gynecologic workup. She is in agreement with the plan. [facility] in the [facility] did not have gynecologic services available and [facility] [employer] was at capacity. Therefore, I opted to transfer to [facility] who accepted patient to the ED. 07/22 12:03 Order name: CBC with Diff; Complete Time: 12:31 sb4 07/22 12:03 Order name: CMP; Complete Time: 12:48 sb4 07/22 12:03 Order name: Lipase; Complete Time: 12:48 sb4 07/22 12:03 Order name: Test, Urine; Complete Time: 14:49 sb4 07/22 12:03 Order name: Urinalysis w/ reflexes; Complete Time: 14:50 sb4 07/22 12:16 Order name: Test, Serum; Complete Time: 12:48 kc6 07/22 14:52 Order name: Urine Culture EDGA 07/22 12:03 Order name: CT Abd/Pelvis - IV Contrast Only; Complete Time: 13:50 sb4 07/22 12:03 Order name: IV Saline Lock; Complete Time: 12:21 sb4 07/22 12:03 Order name: Labs collected and sent; Complete Time: 12:21 sb4 Administered Medications: 12:26 Drug: NS 0.9% IV 1000 ml IV at 1 bolus Per protocol; to be given as a bolus over 60 kc6 minutes Route: IV; Rate: 1 bolus; Site: right antecubital; 13:54 Follow up: Response: No adverse reaction; IV Status: Completed infusion; IV Intake: kc6 1000ml 12:27 Drug: Ondansetron IVP 4 mg IVP once; over 2 minutes Route: IVP; Site: right antecubital;kc6 13:05 Follow up: Response: No adverse reaction; Nausea is decreased; Vomiting decreased kc6 12:27 Drug: fentaNYL (PF) IVP 50 mcg IVP once Route: IVP; Site: right antecubital; kc6 13:05 Follow up: Response: No adverse reaction; Pain is unchanged, physician notified; RASS: kc6 Alert and Calm (0) 13:13 Drug: HYDROmorphone IVP 0.5 mg IVP once Route: IVP; Site: right antecubital; kc6 13:56 Follow up: Response: No adverse reaction; Pain is decreased; RASS: Alert and Calm (0) kc6 13:13 Drug: Promethazine IVP 12.5 mg IVP once Route: IVP; Site: right antecubital; kc6 13:56 Follow up: Response: No adverse reaction; Nausea is decreased; Vomiting decreased kc6 15:35 Drug: HYDROmorphone IVP 0.5 mg IVP once Route: IVP; Site: right antecubital; kc6 15:43 Follow up: Response: No adverse reaction; Pain is decreased; RASS: Alert and Calm (0) kc6 15:35 Drug: Promethazine IVP 12.5 mg IVP once Route: IVP; Site: right antecubital; kc6 15:43 Follow up: Response: No adverse reaction; Nausea is decreased kc6 Disposition Summary: 07/22/24 14:15 Transfer Ordered Notes: Reason: Higher level of care sb4 Condition: Fair sb4 Problem: new sb4 Symptoms: are unchanged sb4 Transfer Location: [facility](07/22/24 14:38) sb4 Accepting Physician: seasoning sprayer(07/22/24 15:44) kc6 Diagnosis - Adnexal mass, left - 8x5x11 cm, concerning for gynecologic malignancy sb4 - Intractable abdominal pain sb4 Forms: - Medication Reconciliation Form sb4 - SBAR form sb4 Signatures: Dispatcher [employer] EDAllison Warren RN RN iw Campbell, Kaitlyn, RN RN kc6 Liyl Bryant, PAGeri PAGeri sb4 Corrections: (The following items were deleted from the chart) 12:03 12:03 CBC+H.LAB.BRZ ordered. EDMS EDMS 12:03 12:03 COMPREHENSIVE METABOLIC PANEL+C.LAB.BRZ ordered. EDMS EDMS 12:03 12:03 LIPASE+C.LAB.BRZ ordered. EDMS EDMS 12:03 12:03 Test, Urine+UC.LAB.BRZ ordered. EDMS EDMS 12:03 12:03 Urinalysis+U.LAB.BRZ ordered. EDMS EDMS 12:04 12:03 Abdomen Pelvis W Con+CT.RAD.BRZ ordered. EDMS EDMS 14:38 14:15 seasoning sprayer sb4 sb4 14:38 14:15 [facility] sb4 sb4 15:44 14:38 seasoning sprayer sb4 kc6
[2024-07-22 14:41] LABS: Specific Gravity 1.024 (1.005-1.030)
[2024-07-22 14:45] LABS: Specific Gravity 1.024 (1.005-1.030); Sqamous Epithelial None Seen /HPF (None Seen); Urine Bacteria <20 /HPF (<20); Urine Bilirubin NEGATIVE (Negative); Urine Blood 3+ (OVER) (Negative); Urine Clarity Extremely Turbid (Clear); Urine Color Dark-Brown (Yellow); Urine Culture Reflex Order REFLEXED; Urine Glucose NEGATIVE (Negative); Urine Ketones NEGATIVE (Negative); Urine Microscopic Reflex YN ORDER UMIC; Urine Nitrite NEGATIVE (Negative); Urine Protein 1+ (Negative); Urine RBC >50 /HPF (None Seen); Urine Urobilinogen Normal (Normal); Urine pH 7.5 (5.0-7.0)
[2024-07-22 15:53] VITALS: O2SAT 100
[2024-07-22 15:55] VITALS: BP 107/58
== END 2024-07-22 15:44 | disposition short-term general hospital (02) ==
LOC: ER 11:40
DX: R19.09 Other intra-abdominal and pelvic swelling, mass and lump (principal); R10.9 Unspecified abdominal pain
CPT/HCPCS: 96361; 87088; 85025; 81001; 87086; 36415; 84703; 81025; 83690; 80053; 74177; 96375; 96374; 99285; Q9967; J2550 ×2; J3010; J1171 ×2; J2405; J7030